=== PATIENT | female | born 1985 | race African-American/Black ===

== ENCOUNTER 2016-03-21 | Emergency (ER) | payer OTHER, MEDICAID ==
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
[2016-03-21 03:23] VITALS: BP 132/62
== END 2016-03-21 02:45 | disposition home or self-care (01) ==
LOC: ER
DX: O9A.212 Injury, poisoning and certain other consequences of external causes complicating pregnancy, second trimester (principal); S10.91XA Abrasion of unspecified part of neck, initial encounter; V48.5XXA Car driver injured in noncollision transport accident in traffic accident, initial encounter; O99.89 Other specified diseases and conditions complicating pregnancy, childbirth and the puerperium; M54.2 Cervicalgia; Z3A.14 14 weeks gestation of pregnancy; Z87.891 Personal history of nicotine dependence
CPT/HCPCS: 99283

== ENCOUNTER 2016-09-09 06:14 | Outpatient (CLI) | payer MEDICAID ==
[2016-09-09 08:48] LABS: APPEARANCE,URINE CLEAR; BILIRUBIN,URINE NEGATIVE (NEGATIVE); GLUCOSE, URINE NEGATIVE (NEGATIVE); KETONES,URINE NEGATIVE (NEGATIVE); LEUKOCYTE ESTERASE,URINE NEGATIVE (NEGATIVE); NITRITE,URINE NEGATIVE (NEGATIVE); PROTEIN,URINE NEGATIVE (NEGATIVE); URINE SPECIFIC GRAVITY 1.013; UROBILINOGEN,URINE NEGATIVE mg/dL (<2.0)
[2016-09-09 09:25] LABS: URINE BARBITURATES SCREEN NEGATIVE; URINE METHADONE SCREEN NEGATIVE; URINE OPIATES LOW NEGATIVE; URINE PHENCYCLIDINE SCREEN NEGATIVE
[2016-09-09] MEDS ORDERED: RINGERS SOLUTION,LACTATED 1,000 ML IV PRN (20:01)
== END 2016-09-09 08:17 | disposition home or self-care (01) ==
LOC: LC 06:14
PROVIDERS: ATTEND Specialist
PROC: 4A1HXCZ Monitoring of Products of Conception, Cardiac Rate, External Approach (ICD-10-PCS; principal; 2016-09-09)
DX: O47.1 False labor at or after 37 completed weeks of gestation (principal); Z3A.39 39 weeks gestation of pregnancy
CPT/HCPCS: 59025; 80307; 81005

== ENCOUNTER 2016-09-09 18:02 | Outpatient (CLI) | payer MEDICAID ==
--- NOTE | 2016-09-09 18:49 | Non Stress Test Report ---
Non Stress Test Datetime Report Generated by CPN: 09/09/2016 18:49 DEMOGRAPHIC EGA NST: 39.0 INDICATION Indication for Study: Ordered by Provider MONITORING Monitor Explained: Monitor Explained; Test Explained; Patient Verbalized Understanding Time on Monitor: 09/09/2016 07:15 Time off Monitor: 09/09/2016 07:35 NST Duration: 20 NST INTERVENTIONS NST Interventions: PO Hydration Physician Notified NST: Dr. Britton BABY A: [id number] BABY A Movement : Present Contraction Frequency : 8-10 minutes FHR Baseline : 135 Accelerations : 15X15 Decelerations : None Variability : Moderate 6-25bpm NST Review: Meets Criteria for Reactive NST (Annotations: Data stored by KATHYN on behalf of user) NST Review: Meets Criteria for Reactive NST NST Review and Verified By : Thien BRAUN NST Results: Reactive NST REPORT Report Trigger: Send Report
[2016-09-09 19:05] LABS: APPEARANCE,URINE SLIGHTLY-CLOUDY; BILIRUBIN,URINE NEGATIVE (NEGATIVE); GLUCOSE, URINE NEGATIVE (NEGATIVE); KETONES,URINE 20 mg/dL (NEGATIVE); LEUKOCYTE ESTERASE,URINE TRACE (NEGATIVE); NITRITE,URINE NEGATIVE (NEGATIVE); PROTEIN,URINE NEGATIVE (NEGATIVE); URINE SPECIFIC GRAVITY 1.014; UROBILINOGEN,URINE NEGATIVE mg/dL (<2.0)
[2016-09-09 19:23] LABS: URINE BARBITURATES SCREEN NEGATIVE; URINE METHADONE SCREEN NEGATIVE; URINE OPIATES LOW NEGATIVE; URINE PHENCYCLIDINE SCREEN NEGATIVE
== END 2016-09-09 21:00 | disposition home or self-care (01) ==
LOC: LC 18:02
PROVIDERS: ATTEND Specialist
PROC: 4A1HXCZ Monitoring of Products of Conception, Cardiac Rate, External Approach (ICD-10-PCS; principal; 2016-09-09)
DX: O47.1 False labor at or after 37 completed weeks of gestation (principal); Z3A.39 39 weeks gestation of pregnancy
CPT/HCPCS: 59025; 81005; 80307; G0480 ×2

== ENCOUNTER 2016-09-09 22:45 | Inpatient (IN) | payer MEDICAID ==
--- NOTE | 2016-09-09 22:58 | Non Stress Test Report ---
Non Stress Test Datetime Report Generated by CPN: 09/09/2016 22:57 DEMOGRAPHIC EGA NST: 39.0 INDICATION Indication for Study: Ordered by Provider MONITORING Monitor Explained: Monitor Explained; Test Explained; Patient Verbalized Understanding Time on Monitor: 09/09/2016 18:51 Time off Monitor: 09/09/2016 20:48 NST Duration: 117 NST INTERVENTIONS NST Interventions: PO Hydration; IV Fluids; Reposition Patient Physician Notified NST: Dr Neilsen BABY A Contraction Frequency : irergular FHR Baseline : 150 Accelerations : 15X15 Decelerations : Variable Variability : Moderate 6-25bpm NST Review: Meets Criteria for Reactive NST NST Review and Verified By : APARNA Garcia NST Results: Reactive NST REPORT Report Trigger: Send Report
[2016-09-09] MEDS ORDERED: RINGERS SOLUTION,LACTATED 1,000 ML IV PRN (23:24)
[2016-09-09] MEDS ORDERED: LIDOCAINE 1% INJ-PF (10 MG/ML) 30 ML SDV ONE (23:40)
[2016-09-09] MEDS ORDERED: MISOPROSTOL 0.2 MG TABLET ONE (23:40)
[2016-09-09] MEDS ORDERED: OXYTOCIN/NORMAL SALINE 20 UNIT/1,000 ML RTUINJ ONE (23:40)
[2016-09-09] MEDS ORDERED: FENTANYL CITRATE INJ/PF 100 MCG/2 ML AMPUL ONE (23:41)
[2016-09-09] MEDS ORDERED: PHENYLEPHRINE HCL INJ/PF 10 MG/1 ML SDV ONE (23:41)
[2016-09-09] MEDS ORDERED: FENTANYL/BUPIVACAINE/NS/PF 200 MCG/100 ML RTUINJ EPI ONE (23:41)
[2016-09-09] MEDS ORDERED: EPHEDRINE SULFATE INJ 50 MG/1 ML AMPULE ONE (23:41)
[2016-09-09] MEDS ORDERED: BUPIVACAINE HCL 0.25 % INJ/PF (2.5 MG/1 ML) 30 ML VIAL ONE (23:42)
[2016-09-09 23:52] LABS: ABSOLUTE EOSINOPHILS # (AUTO) 0.1 10^3/uL (0.0-0.6); ABSOLUTE LYMPHOCYTES (AUTO) 2.5 10^3/uL (0.5-4.7); ABSOLUTE MONOCYTES (AUTO) 0.9 10^3/uL (0.1-1.4); ABSOLUTE NEUT (AUTO) 9.5 10^3/uL (1.7-8.2); BASOPHILS % (AUTO) 0.3 % (0-2); EOSINOPHILS % (AUTO) 0.6 % (0-6); HEMATOCRIT 27.9 % (36.0-47.0); HEMOGLOBIN 9.1 g/dL (12.0-15.5); HGB HCT DIFFERENCE -0.6; MEAN CORPUSCULAR HEMOGLOBIN 29.7 pg (27.0-33.4); MEAN CORPUSCULAR HGB CONC 32.6 g/dL (32.0-36.0); MEAN CORPUSCULAR VOLUME 91 fl (80-97); MONOCYTES % (AUTO) 7.2 % (3-13); RED BLOOD COUNT 3.06 10^6/uL (3.72-5.28); RED CELL DISTRIBUTION WIDTH 14.1 % (11.5-14.0); SEGMENTED NEUTROPHILS % (AUTO) 72.9 % (42-78)
[2016-09-10] MEDS ORDERED: BENZOIN/ALOE VERA/STORAX/TOLU TINCTURE 60 ML TP PRN (00:13)
[2016-09-10] MEDS ORDERED: BUPIVACAINE HCL 0.25 % INJ/PF (2.5 MG/1 ML) 30 ML VIAL INFIL ONE (00:13)
[2016-09-10] MEDS ORDERED: FENTANYL/BUPIVACAINE/NS/PF 100 ML EPI PRN (00:13)
[2016-09-10] MEDS ORDERED: DIPHENHYDRAMINE HCL 50 MG/ML VIAL IM PRN (00:13)
[2016-09-10] MEDS ORDERED: EPHEDRINE SULFATE INJ 50 MG/1 ML AMPULE IV PRN (00:13)
[2016-09-10 00:36] LABS: PROTHROMBIN TIME 12.8 SEC (11.4-15.4)
[2016-09-10 00:37] LABS: FIBRINOGEN 382 mg/dL (209-497)
[2016-09-10] MEDS ORDERED: MEASLES,MUMPS&RUBELLA VACC/PF 0.5 ML VIAL SUBCUT PRN (00:51)
[2016-09-10] MEDS ORDERED: DIPH/PERTUSS(ACELL)/TETANUS VAC/PF 0.5 ML SYR (>=10YO) IM PRN (00:51)
[2016-09-10] MEDS ORDERED: BENZOCAINE/MENTHOL AEROSOL SPRAY 56 ML TOP PRN (00:51)
[2016-09-10] MEDS ORDERED: ZOLPIDEM TARTRATE 5 MG TABLET PO PRN (00:51)
[2016-09-10] MEDS ORDERED: DIBUCAINE 1% OINTMENT 28 GM TP PRN (00:51)
[2016-09-10] MEDS ORDERED: OXYTOCIN/NORMAL SALINE 1,000 ML IV PRN (00:51)
[2016-09-10] MEDS ORDERED: ACETAMINOPHEN WITH CODEINE #3 TABLET PO PRN (00:51)
[2016-09-10] MEDS ORDERED: MAG HYDROX/AL HYDROX/SIMETH SUSP 30 ML UDCUP PO ONE (01:20)
[2016-09-10] MEDS ORDERED: MAG HYDROX/AL HYDROX/SIMETH SUSP 30 ML UDCUP ONE (01:24)
[2016-09-10] MEDS ORDERED: OXYTOCIN/NORMAL SALINE 20 UNIT/1,000 ML RTUINJ ONE (02:01)
[2016-09-10] MEDS: IBUPROFEN 800 MG TABLET PO SCH ×3 (02:54→21:11)
[2016-09-10] MEDS: ACETAMINOPHEN WITH CODEINE #3 TABLET PO PRN ×3 (02:54→17:47)
[2016-09-10] MEDS ORDERED: ACETAMINOPHEN WITH CODEINE #3 TABLET ONE (02:55)
[2016-09-10] MEDS ORDERED: IBUPROFEN 800 MG TABLET ONE (02:55)
--- NOTE | 2016-09-10 05:54 | Delivery Summary ---
Del Sum A-C Datetime Report Generated by CPN: 09/10/2016 03:54 DELIVERY PERSONNEL DELIVERY PERSONNEL: [id number] Delivery Doctor:: Baylee Singer MD Labor and Delivery Nurse:: Ashanti Lacey RN Nursery Nurse:: Starla Contreras RN MSN Nursery Nurse:: Jessica Schilling RN Critical Care Technician/CARAMEL CUTTER HAND: Denzel Cervantes, CARAMEL CUTTER HAND MATERNAL INFORMATION Delivery Anesthesia: Epidural Medications After Delivery: Pitocin Drip 20 Units/1000ml NSS; Other-Please Comment Meds After Delivery Comment: cytotec 1000mcg [place], bag 2 of pitocin Maternal Complications: Precipitous Labor (<3hrs); Abruptio Placenta Provider Comments: Pt progressed to over intact perineum of female infant. Head delivered OA. Snug nuchal cord reduced. Shoulders and body delivered easily. KITCHEN AIDE/OP bulb suctioned. Cord clamped and cut. Placenta spontaneous and intact with small adherent clot c/w abruption. Female apgars 9 and 9. Mom and baby doing well. LABOR SUMMARY EDC: 09/16/2016 00:00 No. Babies in Womb: 1 Attempted: No Labor Anesthesia: Epidural LABOR INFORMATION Reason for Induction: Not Applicable Onset of Labor: 09/09/2016 22:30 Complete Dilatation: 09/10/2016 00:34 Oxytocin: N/A Group B Beta Strep: Negative Steroids Given: None Reason Steroids Not Administered: Not Applicable STAGES OF LABOR Stage 1 hr: 2 Stage 1 min: 4 Stage 2 hr: 0 Stage 2 min: 4 Stage 3 hr: 0 Stage 3 min: 6 Total Time in Labor hr: 2 Total Time in Labor min: 14 VAGINAL DELIVERY Episiotomy: None Laceration Type: None Laceration Repair: Not Applicable BABY A INFORMATION Infant Delivery Date/Time: 09/10/2016 00:38 Method of Delivery: Vaginal Born in Route : No : N/A Forceps: N/A Vacuum Extraction: N/A Shoulder Dystocia : No PRESENTATION/POSITION BABY A Presentation: Cephalic Cephalic Presentation: Vertex Vertex Position: OA Breech Presentation: John PLACENTA INFORMATION BABY A Placenta Delivery Time : 09/10/2016 00:44 Placenta Method of Delivery: Spontaneous Placenta Status: Delivered SCORES BABY A Heart Rate 1 min: >100 bpm Resp Effort 1 min: Good Cry Reflex Irritability 1 min: Cough or Sneeze or Pulls Away Muscle Tone 1 min: Active Motion Color 1 min: Body [place], Extremities Blue Resuscitation Effort 1 min: Tactile Stimulation SCORE 1 MIN: 9 Heart Rate 5 min: >100 bpm Resp Effort 5 min: Good Cry Reflex Irritability 5 min: Cough or Sneeze or Pulls Away Muscle Tone 5 min: Active Motion Color 5 min: Body [place], Extremities Blue Resuscitation Effort 5 min: Tactile Stimulation SCORE 5 MIN: 9 INFORMATION BABY A Gestational Age at Delivery: 39.1 Gestational Status: Full Term- 39- 40.6 Weeks Outcome : Liveborn Condition : Stable Sex: Female IDENTIFICATION BABY A Verification Date/Time: 09/10/2016 00:49 ID Band Number: [id number] Mother's Name Verified: Yes RN Verifying Infant: R Ha, RNC Additional Verifying Personnel: C Aleyda, RN CORD INFORMATION BABY A No. Cord Vessels: 3 Nuchal Cord : Around Neck x1, Tight Cord Blood Taken: Yes-For Eval (Mom's Blood Type - or O+) Infant Suction: Mouth; Nose ASSESSMENT BABY A Complications: Other Complications- Other: meconium, nuchal Physical Findings at Delivery: Within Normal Limits Infant Respirations: Appears Normal Skin to Skin: No Debt And Budget Counselor/ALS Called : No Infant Care By: Thien Contreras RN Transferred To: Remains with Mother SIGNATURES Signature: with User ID: [email or web address]
--- NOTE | 2016-09-10 05:54 | Admission Physical ---
Datetime Report Generated by CPN: 09/10/2016 05:51 CURRENT ADMISSION Hx Assessment: The History has been Reviewed and is Current Chief Complaint: Uterine Contractions Admit Plan: Initiate Labor Protocol ALLERGIES Medication Allergies: No Medication Allergies: No Known Allergies (09/09/2016) Medication Allergies: No Known Allergies (07/08/2014) Latex: No Latex Allergies Food Allergies: none Environmental Allergies: none OBSTETRICAL HISTORY EDC: 09/16/2016 00:00 : 7 Para: 3 Term: 3 : 0 SAB: 0 IAB: 3 Ectopic: 0 Livin Cesareans: 0 VBACs: 0 Multiple Births: 0 Gestational Diabetes: No Rh Sensitization: No Incompetent Cervix: No BOY: No Infertility: No ART Treatment: No Uterine Anomaly: No IUGR: No Hx Previous C/S: No Macrosomia: No Hx Loss/Stillborn: No PIH: Yes Hx : No Placenta Previa/Abruption: No Depression/PP Depression: No PTL/PROM: No Post Hemorrhage: No Current Procedures: Ultrasound; NST Obstetrical History Comments: G1: 2008 G2: 2009 G3: 2012 G4: IAB unknown dates G5: IAB unknown dates G6: IAB unknown dates G7: Current SEE RECORDS Alcohol: No Marijuana : No Cocaine: No Other Illicit Drugs: No Cigarettes: Former Smoker. [id number] MEDICAL HISTORY Diabetes: No Blood Transfusion: No Pulmonary Disease (Asthma, TB): No Breast Disease: No Hypertension: Yes Orthopedic Physician Assistant Surgery: No Heart Disease: No Hosp/Surgery: No Autoimmune Disorder: No Anesthetic Complications: No Kidney Disease: No Abnormal Pap Smear: Yes Neuro/Epilepsy: No Psychiatric Disorders: No Other Medical Diseases: No Hepatitis/Liver Disease: No Significant Family History: No Varicosities/Phlebitis: No Trauma/Violence : No Thyroid Dysfunction: No Medical History Comments: Abn pap: DEMARCO 2/3 in 2013 and 02/2016-ASCUS with neg HRHPV INFECTIOUS HISTORY Gonorrhea: No Genital Herpes: No Chlamydia: Yes Tuberculosis: No Syphilis: No Hepatitis: No HIV/AIDS Exposure: No Rash or Viral Illness: No HPV: No Infectious History Comments: 2005 chlamydia PHYSICAL EXAM General: Normal HEENT: Normal Neurologic: Normal Thyroid: Normal Heart: Normal Lungs: Normal Breast: Normal Back: Normal Abdomen: Normal Genitourinary Exam: Normal Extremities: Normal DTRs: Normal Pelvic Type: Adequate Physical Exam Comments: fair amount of bloody show present but pts 3rd visit here with multiple cervical exams and intercourse today as well as significant cervical change since last visit...uterus soft between contractions denies preeclamspsia sxs plts nl, H/H 11/18-pt with known anemia noncompliant with iron due to constipation FETUS A EGA: 39.1 Monitoring: External US FHR Comments: occasional variable but overall reassuring Presentation: Vertex Admit Comment: admit in labor-plan epidural....discussed r/b/a of vag delivery and if need arises PLANS FOR LABOR AND DELIVERY Labor and Delivery: None Pain Management: Epidural Feeding Preference: Formula Benefit of Breast Feed Discussed: Yes Circumcision: N/A INFORMED CONSENT Signature: with User ID: [email or web address]
--- NOTE | 2016-09-10 08:46 | PDOC PROGRESS REPORT ---
Subjective-OB Subjective: Post Delivery Day: 30 year old. Denies any needs at this time. Smoked marijuana early August. Has only 1 child in her care; 2 boys are with their father. Physical Exam (OB) Vital Signs: Temp Pulse Resp BP Pulse Ox 97.8 F 78 17 132/72 H 100 09/10/16 07:31 09/10/16 07:31 09/10/16 07:31 09/10/16 07:31 09/10/16 07:31 Intake & Output 09/09/16 09/10/16 09/11/16 06:59 06:59 06:59 Weight 86.35 kg - Episiotomy/Laceration Site Condition: N/A - Lochia Lochia Amount: Small 10-25 ml - Abdomen Description: Soft, Round Hernia Present: No Bowel Sounds: Normoactive Flatus Presence: Present Stool: No Objective-Diagnostic Laboratory: 09/09/16 23:34 09/09/16 09/09/16 23:34 23:34 WBC 13.0 H RBC 3.06 L Hgb 9.1 L Hct 27.9 L MCV 91 MCH 29.7 MCHC 32.6 RDW 14.1 H Plt Count 264 Seg Neutrophils % 72.9 Lymphocytes % 19.0 Monocytes % 7.2 Eosinophils % 0.6 Basophils % 0.3 Absolute Neutrophils 9.5 H Absolute Lymphocytes 2.5 Absolute Monocytes 0.9 Absolute Eosinophils 0.1 Absolute Basophils 0.0 Blood Type O POSITIVE Antibody Screen NEGATIVE
[2016-09-10] MEDS: PRENATAL VITAMIN W-O CA NO5/FE FUMARATE/FA CAPSULE PO SCH (09:24)
[2016-09-10] MEDS: FERROUS SULFATE 325 MG TABLET PO SCH ×2 (09:25→17:47)
[2016-09-10] MEDS: DOCUSATE SODIUM 100 MG CAPSULE PO SCH ×2 (09:25→17:46)
[2016-09-10] MEDS: SENNOSIDES/DOCUSATE 8.6-50 MG 1 EACH TABLET PO SCH (09:26)
[2016-09-10 10:11] LABS: HEMATOCRIT 25.4 % (36.0-47.0); HEMOGLOBIN 8.4 g/dL (12.0-15.5); HGB HCT DIFFERENCE -0.2; MEAN CORPUSCULAR VOLUME 91 fl (80-97); RED BLOOD COUNT 2.79 10^6/uL (3.72-5.28); RED CELL DISTRIBUTION WIDTH 14.2 % (11.5-14.0); WHITE BLOOD COUNT 14.6 10^3/uL (4.0-10.5)
[2016-09-11] MEDS: IBUPROFEN 800 MG TABLET PO SCH ×3 (05:13→21:42)
[2016-09-11] MEDS: ACETAMINOPHEN WITH CODEINE #3 TABLET PO PRN ×3 (05:14→21:39)
[2016-09-11] MEDS: DOCUSATE SODIUM 100 MG CAPSULE PO SCH ×2 (09:51→17:38)
[2016-09-11] MEDS: SENNOSIDES/DOCUSATE 8.6-50 MG 1 EACH TABLET PO SCH (09:51)
[2016-09-11] MEDS: FERROUS SULFATE 325 MG TABLET PO SCH ×2 (09:51→17:38)
[2016-09-11] MEDS: PRENATAL VITAMIN W-O CA NO5/FE FUMARATE/FA CAPSULE PO SCH (09:51)
--- NOTE | 2016-09-11 10:33 | PDOC PROGRESS REPORT ---
Subjective-OB Subjective: Post Delivery Day:1 30 year old G7 now P4 s/p ppd 1. Reports moderate abdominal cramping relieved with ibuprofen. Denies any needs at this time Physical Exam (OB) Vital Signs: Temp Pulse Resp BP Pulse Ox 97.8 F 63 16 132/86 H 99 09/11/16 08:10 09/11/16 08:10 09/11/16 08:10 09/11/16 08:10 09/11/16 08:10 Intake & Output 09/10/16 09/11/16 09/12/16 06:59 06:59 06:59 Intake Total 2275 Output Total 2950 Balance -675 Weight 86.35 kg - General General Appearance: Appears well In distress: None - Episiotomy/Laceration Site Condition: N/A - Lochia Lochia Amount: Scant < 10 ml Lochia Color: Rubra/Red - Abdomen Description: Soft, Round Hernia Present: No Fundal Description: Firm, Non-Midline Fundal Height: u/u - u/2 - Respiratory Respiratory Status: No respiratory distress - Extremities Upper extremity: Normal inspection Lower extremities: Normal inspection - Neurological Cognition: Normal Orientation: AAOx4 - Psychological Associated symptoms: Normal affect, Normal mood Objective-Diagnostic Laboratory: 09/10/16 09:44 Assessment and Plan(PN) - Assessment and Plan (1) Delivery normal Is this a current diagnosis for this admission?: YesPlan: continue stay (2) Anemia affecting in third trimester Is this a current diagnosis for this admission?: YesPlan: increase dietary iron and po supplementation (3) induced hypertension Qualifiers: Trimester: unspecified trimester Qualified Code(s): O13.9 - Gestational [-induced] hypertension without significant proteinuria, unspecified trimester Is this a current diagnosis for this admission?: YesPlan: continue stay (4) Drug use affecting Qualifiers: Trimester: unspecified trimester Qualified Code(s): O99.320 - Drug use complicating , unspecified trimester Is this a current diagnosis for this admission?: YesPlan: continue stay, social work consult - Time Spent with Patient Time with patient: 15-25 minutes Medications reviewed and adjusted accordingly: Yes - Disposition Anticipated Discharge: Home Within: within 24 hours
[2016-09-12] MEDS: IBUPROFEN 800 MG TABLET PO SCH (05:20)
[2016-09-12] MEDS: ACETAMINOPHEN WITH CODEINE #3 TABLET PO PRN (05:23)
[2016-09-12 09:03] VITALS: BP 161/93
[2016-09-12] MEDS: PRENATAL VITAMIN W-O CA NO5/FE FUMARATE/FA CAPSULE PO SCH (09:16)
[2016-09-12] MEDS: DOCUSATE SODIUM 100 MG CAPSULE PO SCH (09:16)
[2016-09-12] MEDS: FERROUS SULFATE 325 MG TABLET PO SCH (09:16)
[2016-09-12] MEDS: SENNOSIDES/DOCUSATE 8.6-50 MG 1 EACH TABLET PO SCH (09:16)
--- NOTE | 2016-09-12 09:52 | PDOC PROGRESS REPORT ---
Subjective-OB Subjective: Post Delivery Day: 30 year old. Denies any needs at this time Doing well, no c/o, voiding, eating well, bottle feeding Physical Exam (OB) Vital Signs: Temp Pulse Resp BP Pulse Ox 98.1 F 76 16 161/93 H 98 09/12/16 08:56 09/12/16 08:56 09/12/16 08:56 09/12/16 08:56 09/12/16 04:49 Intake & Output 09/11/16 09/12/16 09/13/16 06:59 06:59 06:59 Intake Total 2275 Output Total 2950 Balance -675 - PIH/Pre-Eclampsia DTR's: 2 + Clonus: Negative Headache: Absent Epigastric Pain: No Visual Changes: No - Lochia Lochia Amount: Scant < 10 ml Lochia Color: Rubra/Red - Abdomen Description: Tender, Soft, Round Hernia Present: No Fundal Description: Firm, Midline Fundal Height: u/u - u/2 Objective-Diagnostic Laboratory: 09/10/16 09:44 Assessment and Plan(PN) - Assessment and Plan (1) Drug use affecting Qualifiers: Trimester: unspecified trimester Qualified Code(s): O99.320 - Drug use complicating , unspecified trimester Is this a current diagnosis for this admission?: Yes (2) Delivery normal Is this a current diagnosis for this admission?: Yes (3) Anemia affecting in third trimester Is this a current diagnosis for this admission?: Yes (4) induced hypertension Qualifiers: Trimester: unspecified trimester Qualified Code(s): O13.9 - Gestational [-induced] hypertension without significant proteinuria, unspecified trimester Is this a current diagnosis for this admission?: Yes - Time Spent with Patient Time with patient: Less than 15 minutes Medications reviewed and adjusted accordingly: Yes - Disposition Anticipated Discharge: Home Within: Other - home today
--- NOTE | 2016-09-12 09:56 | PDOC DISCHARGE SUMMARY ---
Final Diagnosis Discharge Date: 09/12/16 - Final Diagnosis (1) Drug use affecting Is this a current diagnosis for this admission?: Yes (2) Delivery normal Is this a current diagnosis for this admission?: Yes (3) Anemia affecting in third trimester Is this a current diagnosis for this admission?: Yes (4) induced hypertension Is this a current diagnosis for this admission?: Yes Discharge Data - Discharge Medication Home Medications: Ranitidine HCl [Zantac 150 mg Tablet] 1 tab PO DAILY 09/09/16 Gestational Age: 39.1 Reason(s) for Admission: Onset of Labor Procedures: NST, Ultrasound Intrapartum Procedure(s): Spontaneous Vaginal Delivery Complication(s): Other - [place] Data Baby 1 Female at 1 minute: 9 at 5 minutes: 9 Weight: 2.948 kg Home with Mother: Yes - Diagnosis Test Laboratory: Temp Pulse Resp BP Pulse Ox 98.1 F 76 16 161/93 H 98 09/12/16 08:56 09/12/16 08:56 09/12/16 08:56 09/12/16 08:56 09/12/16 04:49 09/09/16 09/10/16 23:34 09:44 RBC 3.06 L 2.79 L Hgb 9.1 L 8.4 L Hct 27.9 L 25.4 L - Discharge information/Instructions Discharge Activity: No Lifting Over 10 Pounds, No Lifting/Push/Pulling, Pelvic Rest Discharge Diet: As Tolerated, Regular Disposition: HOME, SELF-CARE Follow up with: [facility] in: Weeks
== END 2016-09-12 13:35 | disposition home or self-care (01) | DRG 774 ==
LOC: LC 22:45 → LR 23:25 → 2S 09-10 04:07
PROVIDERS: ADMIT Specialist; ATTEND Specialist
PROC: 4A1HXCZ Monitoring of Products of Conception, Cardiac Rate, External Approach (ICD-10-PCS; 2016-09-09)
PROC: 4A1HXCZ Monitoring of Products of Conception, Cardiac Rate, External Approach (ICD-10-PCS; 2016-09-09)
PROC: 4A1HXCZ Monitoring of Products of Conception, Cardiac Rate, External Approach (ICD-10-PCS; 2016-09-09)
PROC: 10E0XZZ Delivery of Products of Conception, External Approach (ICD-10-PCS; principal; 2016-09-10)
DX: O13.4 Gestational [pregnancy-induced] hypertension without significant proteinuria, complicating childbirth (principal); O45.93 Premature separation of placenta, unspecified, third trimester; O99.02 Anemia complicating childbirth; D64.9 Anemia, unspecified; O99.323 Drug use complicating pregnancy, third trimester; F19.90 Other psychoactive substance use, unspecified, uncomplicated; O62.3 Precipitate labor; O32.1XX0 Maternal care for breech presentation, not applicable or unspecified; O77.0 Labor and delivery complicated by meconium in amniotic fluid; O69.1XX0 Labor and delivery complicated by cord around neck, with compression, not applicable or unspecified; Z91.19 Patient's noncompliance with other medical treatment and regimen; Z87.891 Personal history of nicotine dependence; Z3A.39 39 weeks gestation of pregnancy; Z37.0 Single live birth
CPT/HCPCS: 36415; 59025; 80307; 81005; 85025; 85027; 85384; 85610; 85730; 86592; 86850; 86900; 86901; 88307; 90715; 94760; G0480; J2370; J2590; J3010; J3490

== ENCOUNTER 2017-10-07 20:37 | Emergency (ER) | payer SELFPAY ==
[2017-10-07] MEDS ORDERED: ACETAMINOPHEN 325 MG TABLET PO ONE (20:44)
--- NOTE | 2017-10-07 22:37 | RADIOLOGY REPORT (SQ) ---
EXAM DESCRIPTION: ANKLE LEFT COMPLETE COMPLETED DATE/TIME: 10/07/2017 10:18 pm REASON FOR STUDY: injury COMPARISON: None. NUMBER OF VIEWS: Three views. TECHNIQUE: AP, lateral, and oblique radiographic images acquired of the left ankle. LIMITATIONS: None. FINDINGS: MINERALIZATION: Normal. BONES: A small bone fragment adjacent to the tip of the fibula. JOINTS: No effusions. SOFT TISSUES: Lateral soft tissue swelling. OTHER: No other significant finding. IMPRESSION: Cannot exclude avulsion fracture involving the lateral aspect of the talus. TECHNICAL DOCUMENTATION: JOB ID: [id number] [employer]- All Rights Reserved Reading location - IP/workstation name: [email or web address]
--- NOTE | 2017-10-07 22:53 | ER Document Report ---
HPI - HPI Patient complains to provider of: left ankle injury Pain Level: 4 Context: Patient is a 31-year-old female that comes to the emergency department for chief complaint of left ankle and foot pain. She states that she lost her balance and inverted her ankle, afterwards she states that it began to swell and become more and more painful so she became concerned about it. She denies any other injuries, denies fall injury. - REPRODUCTIVE Reproductive: DENIES: : - MUSCULOSKELETAL Musculoskeletal: REPORTS: Extremity pain - left ankle Past Medical History - General Information source: Patient - Social History Smoking Status: Current Every Day Smoker Chew tobacco use (# tins/day): No Frequency of alcohol use: None Drug Abuse: None Lives with: Family Family History: Reviewed & Not Pertinent Patient has suicidal ideation: No Patient has homicidal ideation: No - Past Medical History Cardiac Medical History: Denies: Hx Coronary Artery Disease, Hx Heart Attack, Hx Hypertension Pulmonary Medical History: Denies: Hx Asthma, Hx Bronchitis, Hx COPD, Hx Pneumonia, Hx Tuberculosis Neurological Medical History: Denies: Hx Cerebrovascular Accident, Hx Seizures Renal/ Medical History: Denies: Hx Peritoneal Dialysis Musculoskeletal Medical History: Denies Hx Arthritis Past Surgical History: Reports: Hx Genitourinary Surgery - D&C - Immunizations Hx Diphtheria, Pertussis, Tetanus Vaccination: Yes Vertical Provider Document - CONSTITUTIONAL General Appearance: WD/WN, No Apparent Distress - INFECTION CONTROL TRAVEL OUTSIDE OF THE [place] IN LAST 30 DAYS: No - HEENT HEENT: Atraumatic, Normal ENT Exam, Normocephalic - NECK Neck: Normal Inspection - RESPIRATORY Respiratory: Breath Sounds Normal, No Respiratory Distress - CARDIOVASCULAR Cardiovascular: Regular Rate, Regular Rhythm - GI/ABDOMEN Gastrointestinal: Abdomen Soft, Abdomen Non-Tender - BACK Back: Normal Inspection - MUSCULOSKELETAL/EXTREMETIES Musculoskeletal/Extremeties: Tender - Tenderness with soft tissue swelling at the lateral malleolus and over the dorsum of the foot on the left side. Normal capillary refill and sensation, normal dorsalis pedis, normal knee exam, normal leg exam otherwise. Course - Re-evaluation Re-evalutation: There is soft tissue swelling on exam, x-ray suggests avulsion fracture, no severe swelling, neurovascular deficit, or any other concerning findings. Placed in ankle stirrup and Andrés wrap, given crutches, given instructions, discussed follow-up and return precautions, patient states understanding and agreement. - Vital Signs Vital signs: Temp Pulse Resp BP Pulse Ox 98.9 F 106 H 16 139/82 H 98 10/07/17 20:47 10/07/17 20:47 10/07/17 20:47 10/07/17 20:47 10/07/17 20:47 - Diagnostic Test Radiology reviewed: Image reviewed, Reports reviewed Procedures - Immobilization Left ankle Pre-Proc Neuro Vasc Exam: Normal Immobilizer type: Andrés wrap, Ankle stirrup Performed by: PCT Post-Proc Neuro Vasc Exam: Normal Alignment checked and good: Yes Discharge - Discharge Clinical Impression: Left ankle injury Qualifiers: Encounter type: initial encounter Qualified Code(s): S99.912A - Unspecified injury of left ankle, initial encounter Condition: Stable Disposition: HOME, SELF-CARE Additional Instructions: Avulsion Fracture of the Ankle There is a small chip fracture in your ankle. This fracture was caused by stretching the joint ligaments, which pulled off a small piece of bone. This injury is treated much the same as a severe sprain. At first, you should elevate, rest, and apply ice packs to the leg. Often , only an ankle brace or tape is necessary while the chip fracture heals. Sometimes a chip fracture of this type requires a cast or walking boot. The treatment plan may change, depending on how your ankle progresses. Chip fractures usually do not fuse back onto the bone, but rather scar down to the bone surface. You will most likely see this bone fragment on future x-rays. It's important that you follow the treatment program as outlined for now, then follow up for re-evaluation as scheduled. Call the doctor or return at once if pain or swelling becomes severe, or if you develop other unusual symptoms. Prescriptions: Naproxen 500 mg PO BID PRN #20 tablet PRN Reason: Forms: Return to School Referrals: JULIETA TATUM MD [ACTIVE STAFF] - Follow up in 1 week
[2017-10-07] MEDS ORDERED: OXYCODONE HCL IR 5 MG TABLET PO ONE (22:54)
[2017-10-07] MEDS ORDERED: HYDROCODONE/ACETAMINOPHEN 5-325 MG (6 TAB/ER DISP) PO PRN (23:04)
[2017-10-07 23:47] VITALS: BP 132/68
== END 2017-10-07 23:57 | disposition home or self-care (01) ==
LOC: ER 20:37
DX: S99.912A Unspecified injury of left ankle, initial encounter (principal); X50.0XXA Overexertion from strenuous movement or load, initial encounter; F17.200 Nicotine dependence, unspecified, uncomplicated
CPT/HCPCS: 99283; 73610; L1902

== ENCOUNTER 2018-10-05 07:45 | Emergency (ER) | payer MEDICAID ==
[2018-10-05] MEDS ORDERED: ONDANSETRON HCL INJ/PF 4 MG/2 ML SDV IV ONE (09:06)
--- NOTE | 2018-10-05 09:09 | ER Document Report ---
ED GI/ - General Chief Complaint: Nausea/Vomiting Stated Complaint: NAUSEA Time Seen by Provider: 10/05/18 09:00 Mode of Arrival: Ambulatory Information source: Patient, [facility] Records Notes: This 32-year-old female patient comes emergency room complaining of nausea since 10/01/2018, with occasional vomiting. She also reports that she felt constipated, took a laxative yesterday and did have a bowel movement without any improvement in her overall symptoms. There is no history of fever. Her menstrual period was last week and was normal. TRAVEL OUTSIDE OF THE [place] IN LAST 30 DAYS: No - Related Data Allergies/Adverse Reactions: No Known Allergies Allergy (Verified 10/05/18 08:13) Past Medical History - General Information source: Patient, [facility] Records - Social History Smoking Status: Current Every Day Smoker Cigarette use (# per day): Yes - 1 PPD Chew tobacco use (# tins/day): No Smoking Education Provided: No Frequency of alcohol use: Social Drug Abuse: None Occupation: Cosmetology Lives with: Family Family History: Reviewed & Not Pertinent Patient has suicidal ideation: No Patient has homicidal ideation: No - Medical History Medical History: Negative Surgical Hx: Negative Past Surgical History: Reports: Hx Genitourinary Surgery - D&C - Immunizations Hx Diphtheria, Pertussis, Tetanus Vaccination: Yes Review of Systems - Review of Systems Constitutional: No symptoms reported EENT: No symptoms reported Cardiovascular: No symptoms reported Respiratory: No symptoms reported Gastrointestinal: See HPI Genitourinary: No symptoms reported Female Genitourinary: See HPI Musculoskeletal: No symptoms reported Skin: No symptoms reported Hematologic/Lymphatic: No symptoms reported Neurological/Psychological: No symptoms reported Physical Exam - Vital signs Vitals: Temp Pulse Resp BP Pulse Ox 97.5 F 71 16 109/71 98 10/05/18 08:18 10/05/18 08:18 10/05/18 08:18 10/05/18 08:18 10/05/18 08:18 Interpretation: Normal - General General appearance: Appears well, Alert In distress: None - HEENT Head: Normocephalic, Atraumatic Eyes: Normal Pupils: PERRL - Respiratory Respiratory status: No respiratory distress Breath sounds: Normal - Cardiovascular Rhythm: Regular Heart sounds: Normal auscultation Murmur: No - Abdominal Inspection: Normal Bowel sounds: Hyperactive Tenderness: Nontender - Back Back: Normal - Extremities General upper extremity: Normal inspection General lower extremity: Normal inspection - Neurological Neuro grossly intact: Yes - Psychological Associated symptoms: Normal affect, Normal mood Course - Re-evaluation Re-evalutation: 10/05/18 13:21 The patient was given IV fluids, and a repeat urinalysis was done. She was asked to try to make this when a clean-catch. The second urinalysis does suggest urinary tract infection. It will be cultured, she will be started on antibiotics. - Vital Signs Vital signs: Temp Pulse Resp BP Pulse Ox 97.5 F 71 16 109/71 98 10/05/18 08:18 10/05/18 08:18 10/05/18 08:18 10/05/18 08:18 10/05/18 08:18 - Laboratory Result Diagrams: 10/05/18 09:15 10/05/18 09:15 Laboratory results interpreted by me: 10/05/18 10/05/18 09:10 12:54 Urine Protein 30 H Urine Glucose (UA) 50 H Urine Ketones TRACE H TRACE H Urine Urobilinogen 2.0 H 2.0 H Ur Leukocyte Esterase MODERATE H SMALL H Discharge - Discharge Clinical Impression: Nausea, Dehydration Urinary tract infection Qualifiers: Urinary tract infection type: site unspecified Hematuria presence: without hematuria Qualified Code(s): N39.0 - Urinary tract infection, site not specified Condition: Stable Disposition: HOME, SELF-CARE Additional Instructions: Nausea or Vomiting, Nonspecific Vomiting (or nausea without vomiting) can be caused by many different problems. Of course, it can mean that something's wrong with the stomach, such as "stomach flu," ulcers, or inflammation. But it can also be a symptom of a problem that has nothing to do with the stomach or intestines. Vomiting is common with severe headaches, earaches, and tonsillitis. We see it with pneumonia or heart attacks. Drugs can cause nausea. Many abdominal problems cause vomiting; for example, gallstones, kidney stones, pancreatitis, and intestinal obstruction (blocked bowels). In most cases, curing the vomiting depends on fixing the problem that caused it. For temporary relief, we may use an anti-nausea medicine. For home use, we can prescribe suppositories, chewable pills, pills that dissolve in the mouth, or liquid anti-nausea drugs. If the vomiting seems to be caused by a problem in the stomach, acid-suppressing drugs may be prescribed as well. It's important to avoid dehydration. Sip clear liquids. Take increasing amounts of fluid over the first 24 hours. Then start small amounts of bland foods (such as dry toast, applesauce, mashed potato). Avoid aspirin, tobacco, and alcohol. Gradually resume your usual diet. If the vomiting worsens, if the problem that's making you vomit worsens, or if there's evidence of bleeding in the stomach (such as black, tarry stool, bloody or black vomit, or lightheadedness), you should return immediately. Call your doctor if you aren't improved in 24 to 36 hours. Urinary Tract Infection Your evaluation indicates that you have a urinary tract infection. This is due to germs growing in the bladder. This is a common problem. This infection usually responds quickly to antibiotics. Your antibiotic should be taken exactly as prescribed. Drink plenty of fluids -- three to four quarts a day. Occasionally, a bladder anesthetic will be prescribed to help stop the feeling of urgency until the antibiotic has a chance to clear the infection. This may cause your urine to be dark orange. Certain urine infections require a culture. If the doctor obtained a culture, the results will be back in two days. You should call to see if a change in treatment is needed. A repeat urinalysis after you finish treatment is often recommended. The physician will let you know if further testing is required. Call the doctor if you develop fever, chills, flank pain, inability to urinate, or blood in the urine. Take medications as prescribed for the bladder infection and the nausea. Drink plenty of fluids and get plenty of rest. Follow-up with a local primary care provider if not improving. RETURN TO THE EMERGENCY ROOM IF ANY NEW OR WORSENING SYMPTOMS. Prescriptions: Cephalexin Monohydrate [Keflex 500 mg Capsule] 500 mg PO TID #15 capsule Ondansetron [Zofran Odt 4 mg Tablet] 1 - 2 tab PO Q4H #15 tab.rapdis
[2018-10-05] MEDS: DEXTROSE 5%-LACTATED RINGERS 1,000 ML IV ONE ×2 (09:16→09:19)
[2018-10-05 09:49] LABS: ABSOLUTE BASOPHILS # (AUTO) 0.1 10^3/uL (0.0-0.2); ABSOLUTE EOSINOPHILS # (AUTO) 0.1 10^3/uL (0.0-0.6); ABSOLUTE MONOCYTES (AUTO) 0.3 10^3/uL (0.1-1.4); ABSOLUTE NEUT (AUTO) 3.5 10^3/uL (1.7-8.2); BASOPHILS % (AUTO) 0.9 % (0-2); EOSINOPHILS % (AUTO) 2.4 % (0-6); HEMATOCRIT 41.4 % (36.0-47.0); HEMOGLOBIN 13.9 g/dL (12.0-15.5); LYMPHOCYTES % (AUTO) 33.2 % (13-45); MEAN CORPUSCULAR HEMOGLOBIN 30.7 pg (27.0-33.4); MEAN CORPUSCULAR HGB CONC 33.7 g/dL (32.0-36.0); MEAN CORPUSCULAR VOLUME 91 fl (80-97); MONOCYTES % (AUTO) 5.1 % (3-13); PLATELET COUNT 286 10^3/uL (150-450); RED BLOOD COUNT 4.55 10^6/uL (3.72-5.28); RED CELL DISTRIBUTION WIDTH 13.8 % (11.5-14.0); SEGMENTED NEUTROPHILS % (AUTO) 58.4 % (42-78); TOTAL CELLS COUNTED % (AUTO) 100 %; WHITE BLOOD COUNT 5.9 10^3/uL (4.0-10.5)
[2018-10-05 09:54] LABS: APPEARANCE,URINE CLOUDY; BILIRUBIN,URINE NEGATIVE (NEGATIVE); COLOR,URINE AMBER; GLUCOSE, URINE NEGATIVE (NEGATIVE); KETONES,URINE TRACE mg/dL (NEGATIVE); LEUKOCYTE ESTERASE,URINE MODERATE (NEGATIVE); NITRITE,URINE NEGATIVE (NEGATIVE); PROTEIN,URINE 30 mg/dL (NEGATIVE); URINE SPECIFIC GRAVITY 1.031
[2018-10-05 10:00] LABS: ALBUMIN 4.9 g/dL (3.5-5.0); ALKALINE PHOSPHATASE 68 U/L (38-126); ANION GAP 10 (5-19); ASPARTATE AMINO TRANSFERASE 20 U/L (14-36); BILIRUBIN,DIRECT 0.2 mg/dL (0.0-0.4); BILIRUBIN,TOTAL 0.5 mg/dL (0.2-1.3); BLOOD UREA NITROGEN 11 mg/dL (7-20); CALCIUM 9.7 mg/dL (8.4-10.2); CARBON DIOXIDE 30 mmol/L (22-30); CHLORIDE 103 mmol/L (98-107); GLUCOSE 105 mg/dL (75-110); POTASSIUM 3.6 mmol/L (3.6-5.0); TOTAL PROTEIN 8.2 g/dL (6.3-8.2)
[2018-10-05] MEDS ORDERED: NORMAL SALINE 1000 ML 1,000 ML IV ONE (10:01)
[2018-10-05] MEDS ORDERED: DEXTROSE 5%-LACTATED RINGERS 1,000 ML IV ONE (11:54)
[2018-10-05 13:15] LABS: APPEARANCE,URINE SLIGHTLY-CLOUDY; BILIRUBIN,URINE NEGATIVE (NEGATIVE); COLOR,URINE YELLOW; GLUCOSE, URINE 50 mg/dL (NEGATIVE); KETONES,URINE TRACE mg/dL (NEGATIVE); LEUKOCYTE ESTERASE,URINE SMALL (NEGATIVE); NITRITE,URINE NEGATIVE (NEGATIVE); PROTEIN,URINE NEGATIVE (NEGATIVE); URINE SPECIFIC GRAVITY 1.021
[2018-10-05 14:19] VITALS: BP 122/88
== END 2018-10-05 14:19 | disposition home or self-care (01) ==
LOC: ER 07:45
DX: N39.0 Urinary tract infection, site not specified (principal); E86.0 Dehydration; R11.2 Nausea with vomiting, unspecified; F17.210 Nicotine dependence, cigarettes, uncomplicated
CPT/HCPCS: 99283; 96361; 96374; 36415; 87086; 84703; 85025; 80053; 81001; J2405; J7121; J7030

== ENCOUNTER 2019-11-24 08:25 | Emergency (ER) | payer MEDICAID ==
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
[2019-11-24 10:36] VITALS: BP 129/81
== END 2019-11-24 10:54 | disposition home or self-care (01) ==
LOC: ER 08:25
DX: L02.512 Cutaneous abscess of left hand (principal); M79.645 Pain in left finger(s)
CPT/HCPCS: 99283